=== PATIENT | female | born 1950 | race Two or more races ===

== ENCOUNTER 2024-11-01 05:55 | Day surgery (SDC) | payer OTHER ==
[2024-10-27 13:03] VITALS: BP 147/79
[~2024-11-01] VITALS: Ht 154.9 cm; Wt 65.3 kg
[~2024-11-01 05:55] MED LIST: AVALIDE 300-121 EACH PO; GRALISE600 MG PO; OSTERA TABLET1 EACH PO; OZEMPIC1 MG/0.71; PEPCID40 MG PO; TRAMADOL HCL50 MG PO
[2024-11-01] MEDS ORDERED: METRONIDAZOLE/SODIUM CHLORIDE 500 MG/100 ML PIGGYBACK IV ONE (08:46)
[2024-11-01] MEDS ORDERED: ENOXAPARIN SODIUM 40 MG/0.4 ML SYRINGE SUBCUTANEO ONE (08:46)
[2024-11-01] MEDS ORDERED: CEFTRIAXONE SODIUM 2,000 MG VIAL ONE (08:46)
[2024-11-01] MEDS ORDERED: NEURONTIN300 MG PO (11:40)
[2024-11-01] MEDS ORDERED: POLY119PG PO (11:40)
[2024-11-01] MEDS ORDERED: PERCOCET 5-3251 EACH PO (11:40)
[2024-11-01] MEDS ORDERED: CELEBREX200MG PO (11:40)
[2024-11-01] MEDS ORDERED: MORPHINE SULFATE 4 MG/ML VIAL IV ONE (12:30)
== END 2024-11-01 15:30 | disposition home or self-care (01) ==
LOC: CIR.AMB 05:55
PROVIDERS: ATTEND Surgery
DX: K43.0 Incisional hernia with obstruction, without gangrene (principal); I10 Essential (primary) hypertension; E78.5 Hyperlipidemia, unspecified; E11.9 Type 2 diabetes mellitus without complications